=== PATIENT | male | born 1990 | race African-American/Black ===

== ENCOUNTER 2017-04-26 02:02 | Emergency (ER) | payer SELFPAY ==
[~2017-04-26] VITALS: Ht 182.9 cm; Wt 68.0 kg
[2017-04-26 02:02] VITALS: BP 141/96
== END 2017-04-26 06:09 | disposition left against medical advice (07) ==
LOC: ER 02:06
DX: M79.672 Pain in left foot (principal); Z53.21 Procedure and treatment not carried out due to patient leaving prior to being seen by health care provider